=== PATIENT | male | born 1980 | race Caucasian/White ===

== ENCOUNTER 2021-07-22 12:44 | Emergency (ER) | payer OTHER ==
[~2021-07-22] VITALS: Ht 182.9 cm; Wt 77.2 kg
--- NOTE | 2021-07-22 13:36 | PHYS DOC ---
General Adult EDM: Chief Complaint: CHEST PAIN HPI: HPI: Patient is a 41-year-old male coming in for chest tightness for for 4 days. Patient states that it is substernal and does not radiate. Is worse with exertion. Patient is still feels short of breath. Denies any known medical or cardiac history. Denies any tobacco, alcohol, drug use. Patient has a significant family history of for CAD. Patient states that the pain started a day after getting his first dose of the Moderna COVID-19 vaccine. He says that is getting better, [place]. He does not have a primary care provider that he follows with on a regular basis. Review of Systems: Review of Systems: All other systems within normal limits except for as noted in the HPI Physical Exam: PE: Constitutional: Well developed, well nourished, no acute distress, non-toxic appearance. [] HENT: Normocephalic, atraumatic, bilateral external ears normal, nose normal. [] Eyes: PERRLA, conjunctiva normal, no discharge. [] Neck: No rigidity, supple, no stridor. [] Cardiovascular: Regular rate and rhythm, brisk cap refill [] Lungs & Thorax: Non labored symmetric respirations, no tachypnea or respiratory distress. Pain not reducible with palpation, clear bilateral breath sounds [] Abdomen: Soft, nondistended, mild epigastric tenderness without guarding or latisha ound. Skin: Warm, dry, no erythema, no rash. [] Back: Unremarkable Extremities: No deformities, range of motion grossly intact, no lower extremity edema [] Neurologic: Alert and oriented X 3, no focal deficits noted. [] Psychologic: Affect normal, judgement normal, mood normal. [] EKG: EKG: Work-up unremarkable and lungs clear to auscultation. Discharged with instructions for follow-up and return precautions. [] Radiology/Procedures: Radiology/Procedures: [] Heart Score: C/O Chest Pain: Yes HEART Score for Chest Pain: HEART Score for Chest Pain Response (Comments) Value History Slighlty/Non-Suspicious 0 ECG Normal 0 Age < 45 0 Risk Factors 1 or 2 Risk Factors 1 Troponin < Normal Limit 0 Total 1 Risk Factors: Risk Factors: DM, Current or recent (<one month) smoker, HTN, HLP, family history of CAD, obesity. Risk Scores: Score 0 - 3: 2.5% MACE over next 6 weeks - Discharge Home Score 4 - 6: 20.3% MACE over next 6 weeks - Admit for Clinical Observation Score 7 - 10: 72.7% MACE over next 6 weeks - Early Invasive Strategies Course & Med Decision Making: Course & Med Decision Making Pertinent Labs and Imaging studies reviewed. (See chart for details) [] Dragon Disclaimer: Dragon Disclaimer: This electronic medical record was generated, in whole or in part, using a voice recognition dictation system. Departure Departure: Impression: Primary Impression: Feeling of chest tightness Disposition: HOME / SELF CARE / HOMELESS Condition: STABLE Referrals: PCP,HERMES (PCP) Patient Instructions: Chest Pain (Nonspecific) TUNDE PHILLIP MD Jul 22, 2021 13:36
[2021-07-22 13:39] VITALS: BP 120/79
[2021-07-22 13:40] LABS: BASO % 1 % (0-3); EOS # 0.1 x10^3/uL (0.0-0.7); EOS % 3 % (0-3); HEMOGLOBIN 14.3 g/dL (13.0-17.5); LYMPH # 1.6 x10^3/uL (1.0-4.8); LYMPH % 32 % (24-48); MEAN CORPUSCULAR HEMOGLOBIN 32 pg (25-35); MEAN CORPUSCULAR HGB CONC 35 g/dL (31-37); MEAN CORPUSCULAR VOLUME 92 fL (79-100); MONO # 0.4 x10^3/uL (0.0-1.1); MONO % 8 % (0-9); NEUT # 2.8 x10^3uL (1.8-7.7); NEUT % 57 % (31-73); PLATELET COUNT 188 x10^3/uL (140-400); RED BLOOD COUNT 4.48 x10^6/uL (4.30-5.70); RED CELL DISTRIBUTION WIDTH 12.1 % (11.5-14.5)
[2021-07-22 13:52] LABS: CALCIUM 9.2 mg/dL (8.5-10.1); GFR 82.8; POTASSIUM 3.6 mmol/L (3.5-5.1)
[2021-07-22 13:58] LABS: ALBUMIN 4.2 g/dL (3.4-5.0); ALBUMIN/GLOBULIN RATIO 1.6 (1.0-1.7); C REACTIVE PROTEIN 1.8 mg/L (0-3.3); TOTAL BILIRUBIN 0.4 mg/dL (0.2-1.0); TOTAL PROTEIN 6.9 g/dL (6.4-8.2)
--- NOTE | 2021-07-22 16:52 | EKG ---
[address] [address] Test Date: 2021-07-22 Test Time: 12:51:54 Pat Name: ELIJAH ANDRES Department: Room: Gender: M [employer] Flow Team Leader: DORA : 1980 Requested By: TUNDE PHILLIP Order Number: [id number] Reading MD: Jamey Turner Measurements Intervals [place] Rate: 58 P: 62 IA: 178 QRS: 64 QRSD: 94 T: 29 QT: 380 QTc: 373 Interpretive Statements SINUS RHYTHM MILD NON SPECIFIC ST CHANGES Electronically Signed On 07-28-2021 10:22:55 [employer] by Jamey Turner
== END 2021-07-22 14:55 | disposition home or self-care (01) ==
LOC: ER 12:44
DX: R07.89 Other chest pain (principal)
CPT/HCPCS: 36415; 80053; 83690; 84484; 85025; 85379; 86140; 93005; 99284-25